=== PATIENT | female | born 1955 | race Caucasian/White ===

== ENCOUNTER 2019-02-10 09:29 | Emergency (ER) | payer BC ==
[~2019-02-10] VITALS: Wt 75.6 kg
[~2019-02-10 09:29] MED LIST: CARV40CP PO; LORA-401 PO; [UNRECOGNIZED DRUG - CODE] PO
[2019-02-10] MEDS ORDERED: DIPHENHYDRAMINE 50 MG INJ IV ONE (10:30)
[2019-02-10] MEDS ORDERED: METOCLOPRAMIDE 10 MG INJ IV ONE (10:30)
[2019-02-10] MEDS ORDERED: MECL12.574 PO (11:58)
[2019-02-10] MEDS ORDERED: MECLIZINE 12.5 MG TAB PO ONE (12:00)
[2019-02-10] MEDS ORDERED: AMLO5TAB4 PO (12:07)
[2019-02-10] MEDS ORDERED: METF100010 PO (12:08)
[2019-02-10] MEDS ORDERED: [UNRECOGNIZED DRUG - CODE] PO (12:10)
[2019-02-10] MEDS ORDERED: LORA1TAB PO (12:10)
[2019-02-10] MEDS ORDERED: ATOR40TA68 PO (12:11)
[2019-02-10] MEDS ORDERED: GLIP5TAB13 PO (12:11)
[2019-02-10] MEDS ORDERED: LISI10TA2 PO (12:12)
[2019-02-10] MEDS ORDERED: MELO7.5T38 PO (12:31)
[2019-02-10 12:49] VITALS: BP 145/73; PULSE 84; RESP 16
--- NOTE | 2019-02-10 12:57 | ERD ---
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 The patient reports room spinning and blurry vision. She also was having some left jaw pain. This happened at 6 AM. She is never had this happen before. She denies weakness in the arms or legs. She has nausea but no vomiting. She has no fevers. She did feel body chills. ROS All systems reviewed and are negative except as per history of present illness. Medications Home Meds Active Scripts Meclizine Hcl* (Antivert*) 12.5 Mg Tab, 25 MG PO Q6H PRN for DIZZINESS, #20 TAB Prov:WEN STAPLES MD 02/10/19 Reported Medications Meloxicam* (Meloxicam*) 7.5 Mg Tablet, 7.5 MG PO DAILY, #30 TAB 02/10/19 Lisinopril* (Lisinopril*) 10 Mg Tablet, 10 MG PO DAILY, #30 TAB 02/10/19 Atorvastatin* (Atorvastatin*) 40 Mg Tablet, 40 MG PO QHS, #30 TAB 02/10/19 Glipizide* (Glipizide*) 5 Mg Tablet, 5 MG PO AC BREAKFAST DINNER, TAB 02/10/19 Lorazepam* (Lorazepam*) 1 Mg Tablet, 1 MG PO HS PRN for ANXIETY, #30 TAB 02/10/19 Carvedilol* (Coreg CR*) 40 Mg Capsr, 40 MG PO DAILY, #30 CAP 02/10/19 Metformin Hcl* (Metformin Hcl*) 1,000 Mg Tablet, 1000 MG PO WITH BREAKFAST DINNE, #60 TAB 02/10/19 Amlodipine Besylate* (Norvasc*) 5 Mg Tablet, 5 MG PO DAILY, TAB 02/10/19 Discontinued Reported Medications Letrozole* (Femara*) 2.5 Mg Tablet, 2.5 MG PO DAILY 08/03/12 Lorazepam* (Ativan*) 1 Mg Tablet, 1 MG PO Q6 PRN 08/03/12 Carvedilol Phosphate* (Coreg Cr*) 40 Mg Cpmp.24hr, 40 MG PO DAILY 08/03/12 Allergies Allergies: Coded Allergies: No Known Drug Allergy (Verified Allergy, Unknown, 02/10/19) PMhx/Soc History of Surgery: Yes (LEFT PARTIAL MASTECTOMY W/LYMPH NODE REMOVAL) Anesthesia Reaction: No Hx Neurological Disorder: No Hx Respiratory Disorders: Yes Hx Cardiac Disorders: Yes (HTN, DMII, high cholestrol) Hx Psychiatric Problems: Yes (anxiety) Hx Miscellaneous Medical Probl: Yes (left breast ca) Hx Alcohol Use: No Hx Substance Use: No Hx Tobacco Use: No Smoking Status: Never smoker FmHx Family History: No diabetes Physical Exam Vitals Vital Signs Date Temp Pulse Resp B/P (MAP) Pulse Ox O2 O2 Flow FiO2 Time Delivery Rate 02/10/19 97.6 84 16 145/73 97 Room Air 12:49 (97) 02/10/19 98.4 84 19 153/75 97 Room Air 12:00 (101) 02/10/19 76 19 154/79 97 10:30 (104) 02/10/19 98.5 88 20 170/85 97 09:32 (113) Physical Exam Const: No acute distress Head: Atraumatic Eyes: Normal Conjunctiva ENT: Normal External Ears, Nose and Mouth. Neck: Full range of motion. No meningismus. Resp: Clear to auscultation bilaterally Cardio: Regular rate and rhythm, no murmurs Abd: Soft, non tender, non distended. Normal bowel sounds Skin: No petechiae or rashes Back: No midline or flank tenderness Ext: No cyanosis, or edema Neur: Awake and alert, cranial nerves II through XII are intact, strength is 5 out of 5 in all 4 extremities, no slurred speech Psych: Normal Mood and Affect Result Diagram: 02/10/19 1037 02/10/19 1037 Results 24 hrs Laboratory Tests Test 02/10/19 10:37 02/10/19 10:41 White Blood Count 11.0 10^3/ul Red Blood Count 4.48 10^6/ul Hemoglobin 13.5 g/dl Hematocrit 41.5 % Mean Corpuscular Volume 92.6 fl Mean Corpuscular Hemoglobin 30.1 pg Mean Corpuscular Hemoglobin Concent 32.5 g/dl Red Cell Distribution Width 12.2 % Platelet Count 363 10^3/UL Mean Platelet Volume 10.0 fl Immature Granulocytes % 0.700 % Neutrophils % 78.3 % Lymphocytes % 16.8 % Monocytes % 3.3 % Eosinophils % 0.5 % Basophils % 0.4 % Nucleated Red Blood Cells % 0.0 /100WBC Immature Granulocytes # 0.080 10^3/ul Neutrophils # 8.6 10^3/ul Lymphocytes # 1.9 10^3/ul Monocytes # 0.4 10^3/ul Eosinophils # 0.1 10^3/ul Basophils # 0.0 10^3/ul Nucleated Red Blood Cells # 0.0 10^3/ul Prothrombin Time 12.3 Sec Prothrombin Time Ratio 1.0 INR International Normalized Ratio 0.90 Activated Partial Thromboplast Time 27.8 Sec Sodium Level 139 mmol/L Potassium Level 4.5 mmol/L Chloride Level 101 mmol/L Carbon Dioxide Level 27 mmol/L Anion Gap 11 Blood Urea Nitrogen 24 mg/dl Creatinine 0.57 mg/dl Est Glomerular Filtrat Rate mL/min > 60 mL/min Glucose Level 298 mg/dl Hemoglobin A1c 9.2 % Calcium Level 9.4 mg/dl Troponin I < 0.012 ng/ml Triglycerides Level 225 mg/dl Cholesterol Level 230 mg/dl LDL Cholesterol, Calculated 136 mg/dl HDL Cholesterol 49 mg/dl Cholesterol/HDL Ratio 4.6 RATIO Urine Color YELLOW Urine Clarity CLEAR Urine pH 6.0 Urine Specific [place] 1.026 Urine Ketones TRACE mg/dL Urine Nitrite NEGATIVE mg/dL Urine Bilirubin NEGATIVE mg/dL Urine Urobilinogen NEGATIVE mg/dL Urine Leukocyte Esterase NEGATIVE Celia/ul Urine Hemoglobin NEGATIVE mg/dL Urine Glucose 3+ mg/dL Urine Total Protein NEGATIVE mg/dl Urine Opiates Screen Negative Urine Barbiturates Negative Urine Amphetamines Screen Negative Urine Benzodiazepines Screen Negative Urine Cocaine Screen Negative Urine Cannabinoids Negative Current Medications Medications Dose Sig/Maria Alejandra Start Time Status Last (Trade) Ordered Route PRN Stop Time Admin Dose Reason Admin 10 mg ONCE ONCE 02/10/19 DC 02/10/19 Metoclopramid IV 10:30 02/10/19 11:32 e HCl 10:31 (Reglan) 25 mg ONCE ONCE 02/10/19 DC 02/10/19 Diphenhydrami IV 10:30 02/10/19 11:32 ne HCl 10:31 (Benadryl) Meclizine 25 mg ONCE ONCE 02/10/19 DC 02/10/19 HCl PO 12:00 02/10/19 12:19 (Antivert) 12:01 Procedures/MDM EKG read by me: Rate/Rhythm: Regular rate and rhythm at a normal rate Intervals: Normal Impression: No evidence of ischemia or arrhythmia CT brain read by radiology. Chest x-ray read by radiology. Patient is a 63-year-old female with hypertension and diabetes who presents with dizziness and jaw pain. Laboratory studies are basically normal. EKG was negative for ischemia or arrhythmia. CT scan of the brain was negative. Chest x-ray was negative. At this point I doubt an cranial mass, hemorrhage, or stroke. I doubt acute coronary syndrome, pneumonia, pneumothorax, pulmonary embolism, or aortic dissection. The patient will be discharged home but will need to follow-up closely with Dr. Davenport within the next 24 to 48 hours. The patient can return sooner for any worsening symptoms. Departure Diagnosis: Primary Impression: HTN (hypertension) Hypertension type: essential hypertension Qualified Codes: I10 - Essential (primary) hypertension Additional Impressions: Dizziness Hyperglycemia Condition: Fair Patient Instructions: Hyperglycemia (High Blood Sugar), High Blood Pressure (Hypertension), Dizziness, Unk Cause Additional Instructions: Llame al doctor MAANA y lico franklin RAUL PARA DENTRO DE 1-2 OROZCO.Dgale a la secretaria que nosotros le instruimos hacer esta raul.Avise o llame si salmeron condic in se empeora antes de la raul. Regresa aqui si peor o no mejor. WEN STAPLES MD Feb 10, 2019 12:57
== END 2019-02-10 12:52 | disposition home or self-care (01) ==
LOC: E/R 09:29
DX: I10 Essential (primary) hypertension (principal); E11.65 Type 2 diabetes mellitus with hyperglycemia; Z79.84 Long term (current) use of oral hypoglycemic drugs; Z85.3 Personal history of malignant neoplasm of breast
CPT/HCPCS: 36415; 70450; 71045; 80048; 80061; 80307; 81003; 83036; 84484; 85025; 85610; 85730; 93005; 96374; 96375; 99285; J1200; J2765